=== PATIENT | female | born 1955 ===

== ENCOUNTER 2017-06-27 03:08 | Inpatient (IN) | payer OTHER ==
[2017-06-27 03:08] VITALS: BMI 23.6
--- NOTE | 2017-06-27 03:16 | ED PDOC ---
Psych Transfer Clearance - Clearance Statement Clearance Statement: Reviewed vital signs, lab results and transfer papers. Patient clinically stable for psychiatric admission.
[2017-06-27] MEDS ORDERED: Bismuth Subsalicylate 262 mg/15 ml Sus (240 ml) PO PRN (03:54)
[2017-06-27] MEDS ORDERED: Magnesium Hydroxide Susp 30 ml UD PO PRN (03:54)
[2017-06-27] MEDS ORDERED: Alum-Mag Hydrox-Simethicone Susp (30 mL) PO PRN (03:54)
--- NOTE | 2017-06-27 04:02 | PCM.BM ---
<Philly Lopez - Last Filed: 06/27/17 04:00> Treatment Plan Problems - Problems identified on initial assessmt hopelessness/helplessness Date Initiated: 06/27/17 Time Initiated: 04:01 Assessment reference: NA Status: Active feelings of worthlessness Assessment reference: NA Status: Active Treatment assets and liabiliti Patient Assests: cooperative, ADL independent, physically healthy, negotiates basic needs Patient Liabilities: poor support system, relationship conflicts, substance abuse - Milieu Protocol Maintain good personal hygiene: daily Encourage regular showers, daily Remind patient to perform daily oral care, daily Assist patient to perform ADL's Maintain personal safety: every shift Educate patient to report safety concerns to staff, every shift Monitor environment for contraband/sharps Medication safety: Monitor for expected outcome, potential side effects: every shift, Assess barriers to learning: every shift, Assess readiness for medication education: every shift <Lilia Krishnan - Last Filed: 06/27/17 11:20> - Diagnosis (1) Major depressive disorder Status: Acute Interventions: Medication management, Psychoeducation, Individual and group therapy 06/27/17 11:21 <Nikia Crowe - Last Filed: 06/29/17 12:52> Family Contact Family contact: Patient agrees to contact Family contact name: Sylvia - daughter Family contacted how many times per week?: 2 Family contact comment: [phone] - Goals for Treatment Patient goals for treatment: Pt to be encouraged to attend activity and clinical groups 3-5x per week to identify at least 2 contributing factors to depression and suicide attempt. Psycho-education to be provided to patient/ family regarding benefits of medications and treatment adherence. Pt to be encouraged to participate in group milieu to develop effective coping skills to reduce depression and free of suicide ideation. Coordinate discharge resource needs by providing referral for psychiatric treatment follow up Discharge/Continuing Care - Education Needs Education Needs: Family Medication, Family Diagnosis/Disease Process, Family Coping Skills, Family Community resources, Family Health Practices/Safety, Family Personal Hygiene/Grooming, Family Aftercare Safety Plan, Patient Medication, Patient Diagnosis/Disease Process, Patient Coping Skills, Patient Community resources, Patient Health Practices/Safety, Patient Personal Hygiene/ Grooming, Patient Aftercare Safety Plan - Discharge Discharge Criteria: Tolerates medication w/o severe side effects, Free of Suicidal thoughts, Normal sleep pattern, Ability to care for self, Reduction of target symptoms Discharge to:: Home, With Family - Additional Comments 06/29/17 12:47 Pt seen and discussed in team meeting. Reason for hospitalization reviewed and discussed. Pt reported her mother recently and she has been holding her feelings and has not grieved properly. Pt reported she waited until her family left the house for her to "just vent and let everything out." Pt reported feeling numb at that time. 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 Pt reported she drank 3 beers and took 2 Valium. Pt stated "I don't know what i was thinking at that moment." Pt reported feeling angry, sad, and "lot of regrets." Pt reported prior hx of suicide attempts. Pt reported that she is regretful of her attempt and happy to be alive. Pt's social and medical issues reviewed and discussed. Pt's medications reviewed and discussed. Tx plan reviewed and discussed; pt is agreeable. Pt tearful during meeting. Air Traffic Control Operator will continue to follow case. - Treatment Team Participation Discussed with Family/SO: No Was Patient/Family/SO present at Treatment Team Meeting: Yes
--- NOTE | 2017-06-27 11:30 | PCM.PSYCH ---
Initial Psychiatric Evaluation - Initial Psychiatric Evaluation Type of Admission: Voluntary Legal Status: Capacity Chief Complaint (in patient's own words): "I'm depressed." Patient's Reaction to Hospitalization: HPI: 62 yo female w/ h/o previous suicide attempts, presented to [facility] ER intoxicated, after she drank alcohol and ingested what she believes is Valium from her friend in a suicide attempt in the context of the recent of her mother. Patient's Utox was positive for Barbituates, not benzos, so it is unclear what she actually took. She reports that she only drank two beers, but her BAL was 256. Patient reports that she continues to have passive suicidal ideation, but not active plan or intent. She continues to be hopeless, w/ low motivation and energy. She reports sleep and appetite disturbances. PMHx: Patient denies chronic medical conditions PPHx: H/o suicide attempt by OD 9 years ago, no h/o psychiatric hospitalizations. H/o outpatient psychiatric treatment over 2/3 years ago; was medicated w/ Xanax. ALL: NKDA SHx: Drinks etoh intermittently; smokes 5-6 cig/day; denies illicit drug use Current Medications: Active Medications Generic Name Dose Route Start Last Admin Trade Name Freq PRN Reason Stop Dose Admin Acetaminophen 650 mg 06/27/17 03:54 06/27/17 04:35 Tylenol 325mg Tab PO 650 mg Q4 PRN Administration Pain, moderate (4-7) Al Hydrox/Mg Hydrox/Simethicone 30 ml 06/27/17 03:54 Maalox Plus 30 Ml PO Q4 PRN Dyspepsia Bismuth Subsalicylate 524 mg 06/27/17 03:54 Pepto-Bismol PO Q4 PRN Diarrhea Lorazepam 0.5 mg 06/27/17 03:54 Ativan PO 07/11/17 03:55 HS PRN Insomnia Lorazepam 0.5 mg 06/27/17 03:54 Ativan PO 07/11/17 03:55 Q6 PRN Anixety/Agitation Magnesium Hydroxide 30 ml 06/27/17 03:54 Milk Of Magnesia PO HS PRN Constipation Sertraline HCl 50 mg 06/27/17 11:30 Zoloft PO DAILY [facility] Past Psychiatric History - Past Psychiatric History Pertinent Medical Hx (Current Medical&Sleep Prob, Allergies): Allergies Allergy/AdvReac Type Severity Reaction Status Date / Time No Known Allergies Allergy Verified 06/26/17 16:33 Acetaminophen/Codeine Phosph [Acetaminophen and Codeine Phosphate #3 300 mg] 1 tab PO Q4 PRN #14 tab 04/06/14 Cephalexin [Keflex] 500 mg PO TID #20 cap 04/06/14 No Known Home Med 12/29/16 Review of Systems - Psychiatric Psychiatric: Abnormal Sleep Pattern, Anhedonia, Anxiety, Change in Appetite, Depression, Difficulty Concentrating, Hopelessness, Suicidal Ideation Mental Status Examination - Personal Presentation Personal Presentation: Looks stated age - Affect Affect: Constricted, Depressed - Motor Activity Motor Activity: Calm - Reliability in Providing Information Reliability in Providing Information: Good - Speech Speech: Organized - Mood Mood: Depressed - Formal Thought Process Formal Thought Process: No Impairment - Hallucinations/Delusions Additional comments: NO AH/VH/paranoia/delusions - Obsessions/Compulsions Obsessions: No Compulsions: No - Cognitive Functions Orientation: Person, Place, Situation, Time Sensorium: Alert Attention/Concentration: Attentive Estimate of Intelligence: Average Judgement: Intact, as evidence by: Insight regarding need for hospitalization Memory: Recent intact, as evidence by: Ability to recall events of the day, Remote intact, as evidenced by: Abilit to recall sig. life events, Remote intact , as evidenced by: Ability to recall historical events - Risk Risk: Suicidal, Diminished functioning - Strength & Assets Inventory Strength & Assets Inventory: Cooperative DSM 5 DX - DSM 5 DSM 5 Diagnosis: Major Depressive Disorder - Recommended/Plan of Treatment Treatment Recommendations and Plan of Treatment: Major Depressive Disorder -Admit to geriatric psychiatry unit -Individual and group therapy -Start Zoloft 50 mg PO Daily -Nicotine patch -Psychoeducation -Disposition planning Projected ELOS: 5-8 days Discharge Plan and Discharge Criteria: Discharge patient when she is psychiatrically stable - Smoking Cessation Smoking Cessation Initiated: Yes
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
[2017-06-27 17:23] LABS: SQUAMOUS EPITHIAL 1 /hpf (0-5); URINE BILIRUBIN NEGATIVE (NEGATIVE); URINE BLOOD NEGATIVE (NEGATIVE); URINE CLARITY CLEAR (Clear); URINE COLOR YELLOW (YELLOW); URINE GLUCOSE (UA) NEG (Normal); URINE LEUKOCYTE ESTERASE SMALL Leu/uL (Negative); URINE NITRATE NEGATIVE (NEGATIVE); URINE PROTEIN NEGATIVE (NEGATIVE); URINE UROBILINOGEN 0.2-1.0 mg/dL (0.2-1.0)
[2017-06-28 07:26] LABS: BASO # 0.1 K/uL (0.0-0.2); BASO % 1.2 % (0.0-2.0); EOS # 0.2 K/uL (0.0-0.7); EOS % 3.7 % (0.0-4.0); HEMOGLOBIN 14.6 g/dL (12.0-16.0); LYMPH # 2.3 K/uL (1.0-4.3); LYMPH % 41.6 % (20.0-40.0); MEAN CELL VOLUME 85.6 fl (81.0-99.0); MEAN CORPUSCULAR HEMOGLOBIN 28.3 pg (27.0-31.0); MEAN PLATELET VOLUME 8.9 fl (7.2-11.7); MONO # 0.4 K/uL (0.0-0.8); NEUT # 2.5 K/uL (1.8-7.0); NEUT % 46.5 % (50.0-75.0); NRBC % 0.2 % (0.0-0.0); RBC 5.18 Mil/uL (3.80-5.20); RED CELL DISTRIBUTION WIDTH 14.1 % (11.5-14.5); WHITE BLOOD COUNT 5.5 K/uL (4.8-10.8)
[2017-06-28 07:46] LABS: ALB/GLOB RATIO 1.5 (1.0-2.1); ALBUMIN 4.1 g/dL (3.5-5.0); ALT/SGPT 33 U/L (9-52); AST/SGOT 29 U/L (14-36); BLOOD UREA NITROGEN 10 mg/dl (7-17); CALCIUM 9.5 mg/dL (8.4-10.2); GFR AFRICAN-AMERICAN > 60; GFR NON-AFRICAN AMERICAN > 60; HDL CHOLESTEROL 83 MG/DL (30-70)
[2017-06-28 07:54] LABS: T4 6.07 ug/dl (5.5-11.0)
[2017-06-28 07:56] LABS: LDL CHOLESTEROL 104 mg/dL (0-129)
[2017-06-28 08:08] LABS: T3 0.891 nmol/L (1.49-2.60)
[2017-06-28 08:30] LABS: IRON 146 ug/dL (37-170)
[2017-06-28 08:39] LABS: % IRON SATURATION 45 % (20-55); TOTAL IRON BINDING CAPACITY 323 ug/dL (250-450)
--- NOTE | 2017-06-28 11:33 | PCM.PYCHPN ---
Psychiatric Progress Note - Psychiatric Progress Note Patient seen today, length of contact: Patient evaluated, case discussed with team, chart reviewed Patient Chief Complaint: "I'm depressed." Problems Identified/Issues Discussed: Patient continues to be depressed and tearful. She continues to grieve the of her mother. She continues to have passive wishes that she were not alive. She reports sleep and appetite disturbances. No AH/VH. No adverse effects to medications reported. Medication Change: No Medical Record Reviewed: Yes Consults ordered or reviewed: Medicine Mental Status Examination - Cognitive Function Orientation: Person, Place, Situation, Time Memory: Intact Attention: WNL Concentration: WNL Association: [facility] Fund of Knowledge: [facility] - Mood Mood: Depressed - Affect Affect: Constricted, Depressed - Formal Thought Process Formal Thought Process: No Impairment Psychotic Thoughts and Behaviors: No AH/VH/paranoia/delusions - Suicidal Ideation Suicidal Ideation: No - Homicidal Ideation Homicidal Ideation: No Goal/Treatment Plan - Goal/Treatment Plan Need for Continued Stay: Remain at risks for inpatient hospitalization, Severe depression anxiety Progress Toward Problem(s) and Goals/Treatment Plan: Major Depressive Disorder -Individual and group therapy -Continue Zoloft 50 mg PO Daily -Nicotine patch -Psychoeducation -Disposition planning Estimated Date of D/C: 07/02/17 - Smoking Cessation Smoking Cessation Initiated: Yes
--- NOTE | 2017-06-29 11:50 | PCM.PYCHPN ---
Psychiatric Progress Note - Psychiatric Progress Note Patient seen today, length of contact: Patient evaluated, case discussed with team, chart reviewed Patient Chief Complaint: "I'm depressed." Problems Identified/Issues Discussed: Patient continues to be depressed and tearful. She reports poor sleep, low energy and poor appetite. No AH/VH. No active suicidal ideation/plan/intent. No adverse effects to medications reported. Medication Change: No Medical Record Reviewed: Yes Consults ordered or reviewed: Medicine Mental Status Examination - Cognitive Function Orientation: Person, Place, Situation, Time Memory: Intact Attention: WNL Concentration: WNL Association: WNL Fund of Knowledge: [facility] Decription of patient's judgement and insights: Fair I/J - Mood Mood: Depressed - Affect Affect: Constricted, Depressed - Formal Thought Process Formal Thought Process: No Impairment Psychotic Thoughts and Behaviors: No AH/VH/paranoia/delusions - Suicidal Ideation Suicidal Ideation: No - Homicidal Ideation Homicidal Ideation: No Goal/Treatment Plan - Goal/Treatment Plan Need for Continued Stay: Remain at risks for inpatient hospitalization, Severe depression anxiety Progress Toward Problem(s) and Goals/Treatment Plan: Major Depressive Disorder -Individual and group therapy -Continue Zoloft 50 mg PO Daily -Ativan PRN anxiety -Nicotine patch -Psychoeducation -Disposition planning Estimated Date of D/C: 07/03/17
--- NOTE | 2017-06-30 10:10 | PCM.PYCHPN ---
Psychiatric Progress Note - Psychiatric Progress Note Patient seen today, length of contact: Patient evaluated, case discussed with team, chart reviewed Patient Chief Complaint: "I'm depressed." Problems Identified/Issues Discussed: Patient continues to be depressed, but reports that she is starting to feel better. She took PRN Ativan last night for anxiety and insomnia and she believes that it helped reduce her anxiety. Patient was encouraged to attend groups and get out of bed more. No AH/VH. No active suicidal ideation/plan/ intent. No adverse effects to medications reported. Medication Change: No Medical Record Reviewed: Yes Consults ordered or reviewed: Medicine Mental Status Examination - Cognitive Function Orientation: Person, Place, Situation, Time Memory: Intact Attention: WNL Concentration: WNL Association: WNL Fund of Knowledge: [facility] Decription of patient's judgement and insights: Fair I/J - Mood Mood: Depressed - Affect Affect: Constricted, Depressed - Formal Thought Process Formal Thought Process: No Impairment Psychotic Thoughts and Behaviors: No AH/VH/paranoia/delusions - Suicidal Ideation Suicidal Ideation: No - Homicidal Ideation Homicidal Ideation: No Goal/Treatment Plan - Goal/Treatment Plan Need for Continued Stay: Remain at risks for inpatient hospitalization, Severe depression anxiety Progress Toward Problem(s) and Goals/Treatment Plan: Major Depressive Disorder -Individual and group therapy -Continue Zoloft 50 mg PO Daily -Ativan PRN anxiety -Nicotine patch -Psychoeducation -Disposition planning Estimated Date of D/C: 07/03/17
--- NOTE | 2017-07-01 12:08 | PCM.PYCHPN ---
Psychiatric Progress Note - Psychiatric Progress Note Patient seen today, length of contact: Patient evaluated, case discussed with team, chart reviewed Patient Chief Complaint: "I'm depressed." Problems Identified/Issues Discussed: Patient continues to be depressed, but states the her mood continues to improve. Patient was encouraged to attend groups and get out of bed more. No AH/VH. No active suicidal ideation/plan/intent. No adverse effects to medications reported. Medication Change: No Medical Record Reviewed: Yes Consults ordered or reviewed: Medicine Mental Status Examination - Cognitive Function Orientation: Person, Place, Situation, Time Memory: Intact Attention: WNL Concentration: WNL Association: [facility] Fund of Knowledge: [facility] Decription of patient's judgement and insights: Fair I/J - Mood Mood: Depressed - Affect Affect: Constricted, Depressed - Formal Thought Process Formal Thought Process: No Impairment Psychotic Thoughts and Behaviors: No AH/VH/paranoia/delusions - Suicidal Ideation Suicidal Ideation: No - Homicidal Ideation Homicidal Ideation: No Goal/Treatment Plan - Goal/Treatment Plan Need for Continued Stay: Remain at risks for inpatient hospitalization, Severe depression anxiety Progress Toward Problem(s) and Goals/Treatment Plan: Major Depressive Disorder -Individual and group therapy -Continue Zoloft 50 mg PO Daily -Ativan PRN anxiety -Nicotine patch -Psychoeducation -Disposition planning- likely discharge on Thursday if patient improves clinically Estimated Date of D/C: 07/03/17
[2017-07-01 17:35] VITALS: O2SAT 93
--- NOTE | 2017-07-02 11:12 | PCM.PYCHPN ---
Psychiatric Progress Note - Psychiatric Progress Note Patient seen today, length of contact: Patient evaluated, case discussed with team, chart reviewed Patient Chief Complaint: "I'm okay." Problems Identified/Issues Discussed: Patient reports that she feels less depressed and anxious. She is more goal oriented. No AH/VH. No active suicidal ideation/plan/intent. No adverse effects to medications reported. Medication Change: No Medical Record Reviewed: Yes Consults ordered or reviewed: Medicine Mental Status Examination - Cognitive Function Orientation: Person, Place, Situation, Time Memory: Intact Attention: WNL Concentration: WNL Association: WNL Fund of Knowledge: [facility] Decription of patient's judgement and insights: Fair I/J - Mood Mood: Depressed - Affect Affect: Constricted - Formal Thought Process Formal Thought Process: No Impairment Psychotic Thoughts and Behaviors: No AH/VH/paranoia/delusions - Suicidal Ideation Suicidal Ideation: No - Homicidal Ideation Homicidal Ideation: No Goal/Treatment Plan - Goal/Treatment Plan Need for Continued Stay: Remain at risks for inpatient hospitalization, Severe depression anxiety Progress Toward Problem(s) and Goals/Treatment Plan: Major Depressive Disorder -Individual and group therapy -Continue Zoloft 50 mg PO Daily -Ativan PRN anxiety -Nicotine patch -Psychoeducation -Disposition planning- likely discharge on Thursday if patient improves clinically Estimated Date of D/C: 07/03/17
[2017-07-03 05:45] VITALS: BP 139/80; PULSE 93; RESP 20; TEMP 97.7
--- NOTE | 2017-07-03 08:34 | PCM.PYCHDC ---
Mental Status Examination - Mental Status Examination Orientation: Person, Place, Situation, Time Memory: Intact Mood: Neutral Affect: Broad Speech: Appropriate Attention: WNL Concentration: WNL Association: WNL Fund of Knowledge: WNL Formal Thought Process: No Impairment Description of patient's judgement and insight: Fair I/J Psychotic Thoughts and Behaviors: No AH/VH/paranoia/delusions Suicidal Ideation: No Current Homicidal Ideation?: No Discharge Summary - Discharge Note Reason for Hospitalization: HPI: 62 yo female w/ h/o previous suicide attempts, presented to [facility] intoxicated, after she drank alcohol and ingested what she believes is Valium from her friend in a suicide attempt in the context of the recent of her mother. Patient's Utox was positive for Barbituates, not benzos, so it is unclear what she actually took. She reports that she only drank two beers, but her BAL was 256. Patient reports that she continues to have passive suicidal ideation, but not active plan or intent. She continues to be hopeless, w/ low motivation and energy. She reports sleep and appetite disturbances. PMHx: Patient denies chronic medical conditions PPHx: H/o suicide attempt by OD 9 years ago, no h/o psychiatric hospitalizations. H/o outpatient psychiatric treatment over 2/3 years ago; was medicated w/ Xanax. ALL: NKDA SHx: Drinks etoh intermittently; smokes 5-6 cig/day; denies illicit drug use Consultations:: List each consultation separately and include: 1. Reason for request. 2. Findings. 3. Follow-up Consultations: Medicine Summary of Hospital Course include:: 1. Description of specific treatment plan utilized for patients during their course of treatmen. 2. Summarize the time- course for resolution of acute symptoms and/or regressed behaviors. 3. Describe issues identified and worked on during hospitalization. 4. Describe medication utilized. 5. Describe medical problems identified and treated. 6. Reassessment of suicide risk Summary of Hospital Course: Patient was admitted to the psychiatry unit. Individual and group therapy were provided. Patient was stabilized on Zoloft 50 mg PO Daily and Ativan 1 mg PO HS PRN. She reports improvement in her mood and no longer reports SI. Patient is psychiatrically stable for discharge with outpatient follow-up. - Diagnosis (1) Major depressive disorder Current Visit: Yes Status: Chronic - Final Diagnosis (DSM 5) Condition upon Discharge: STABLE DSM 5: Major Depressive Disorder Disposition: HOME/ ROUTINE Follow-up Treatment Plan: Major Depressive Disorder -Continue Zoloft 50 mg PO Daily -Ativan PRN anxiety -Nicotine patch -Discharge w/ outpatient follow-up Prescriptions/Medication Reconciliation: cloNIDine [Catapres] 0.1 mg PO BID #60 tab LORazepam [Ativan] 1 mg PO HS PRN #30 tab PRN Reason: Anxiety/Insomnia Nicotine [Nicotine Patch] 14 mg TD DAILY #30 patch.td24 Sertraline [Zoloft] 50 mg PO DAILY #30 tab - Smoking Cessation Smoking Cessation Medication prescribed: Yes - Antipsychotic Medications Pt discharged on 2 or more routine antipsychotic medications: No
== END 2017-07-03 14:00 | disposition home or self-care (01) | DRG 426 ==
LOC: H.ER 03:08 → H.ERHOLD 03:14 → H.STEP 03:35
PROVIDERS: ADMIT Psychiatry & Neurology Psychiatry; ATTEND Psychiatry & Neurology Psychiatry
PROC: GZHZZZZ Group Psychotherapy (ICD-10-PCS; principal; 2017-06-27)
DX: F32.9 Major depressive disorder, single episode, unspecified (principal); R45.851 Suicidal ideations; F17.210 Nicotine dependence, cigarettes, uncomplicated; G47.00 Insomnia, unspecified; F41.9 Anxiety disorder, unspecified